=== PATIENT | male | born 1950 | race Caucasian/White ===

== ENCOUNTER 2023-05-11 09:48 | Outpatient (OUT) | payer MEDICARE, SELFPAY ==
[2023-05-11 10:56] LABS: Basophils Percent Auto 0.8 % (0.2-2.0); Eosinophils Absolute Auto 0.5 10^3/uL (0.0-0.7); Eosinophils Percent Auto 10.3 % (0.9-7.0); Hematocrit 42.9 % (42.0-54.0); Hemoglobin 13.8 g/dL (14.0-18.0); Immature Granulocytes Abs Auto 0.02 10^3/uL (0.00-0.03); Immature Granulocytes Pct Auto 0.4 % (0.0-0.5); Lymphocytes Percent Auto 40.9 % (20.5-60.0); Mean Corpuscular HGB Conc 32.2 g/dL (29.9-35.2); Mean Corpuscular Hemoglobin 30.4 pg (25.9-34.0); Mean Corpuscular Volume 94.5 fL (80.0-94.0); Mean Platelet Volume 10.2 fL (9.5-13.5); Monocytes Absolute Auto 0.4 10^3/uL (0.3-0.8); Monocytes Percent Auto 7.9 % (1.7-12.0); Neutrophils Absolute Auto 1.9 10^3/uL (1.4-6.5); Neutrophils Percent Auto 39.7 % (43.0-75.0); Platelet Count 269 10^3/uL (150-450); Red Blood Count 4.54 10^6/uL (4.70-6.10); Red Cell Distribution Width 14.4 % (11.0-15.0); White Blood Count 4.8 10^3/uL (4.0-11.0)
[2023-05-11 11:18] LABS: Alanine Aminotransferase 38 U/L (16-63); Anion Gap 12.4; Calcium 8.6 mg/dL (8.5-10.1); Carbon Dioxide 27.8 mmol/L (21.0-32.0); Chloride 104 mmol/L (98-107); Chol HDL Ratio 3.5; Cholesterol 145 mg/dL (<=200); Estimated GFR (African America >60 (>=60); Estimated GFR (Non-African Ame >60 (>=60); Glucose 112 mg/dL (74-106); HDL Cholesterol 42 mg/dL (40-60); Potassium 4.2 mmol/L (3.5-5.1); Sodium 140 mmol/L (136-145); Triglycerides 224 mg/dL (<=150); VLDL CHOLESTEROL 44.8 mg/dL
[2023-05-11 13:26] LABS: Prostate Specific Antigen Scrn 0.47 ng/mL (<=4.00)
== END 2023-05-11 09:49 | disposition home or self-care (01) ==
PROVIDERS: PCP Internal Medicine; Visit Provider Internal Medicine
DX: E78.01 Familial hypercholesterolemia (principal); Z79.899 Other long term (current) drug therapy; I10 Essential (primary) hypertension; Z12.5 Encounter for screening for malignant neoplasm of prostate
CPT/HCPCS: 36415; 80048; 80061; 84460; 85025; G0103

== ENCOUNTER 2024-05-10 07:11 | Outpatient (OUT) | payer MEDICARE, SELFPAY ==
--- OUTSIDE RECORDS SUMMARY | 2024-05-10 07:15 | XMS_ITS | CCD ---
Author Organization [facility] CliniSymd Care Team Providers Care Clinic Scheduler Name Role Phone DR REMIGIO TANNER Attending Unavailable CIRO, DR STROUD Consulting Unavailable CIRO, DR STROUD Primary Care Unavailable CIRO, DR STROUD Admitting Unavailable Remigio Tanner Unavailable Elizabeth Ambrosio Unavailable Medications Current Medications Medication Drug Class(es) Dates Sig (Normalized) Sig (Original) amLODIPine 2.5 mg oral tablet (10 sources) Dihydropyridine Calcium Channel Yusuf Start: 06-01-2023 take 1 tablet by mouth once daily Amlodipine 2.5 mg tablet Active 2.5 MG PO Daily June 01, 2023 12:00am take 1 tablet by jyoti th every twenty-four hours amLODIPine Besylate 2.5 MG 1 tablet Orally Once a day Active aspirin 81 mg delayed release oral tablet (10 sources) Platelet Aggregation Inhibitor, Nonsteroidal Anti-inflammatory Drug Start: 08-14-2023 take 1 tablet by mouth once daily Aspirin 81 mg tablet,delayed release (DR/EC) Active 81 MG PO Daily August 13, 2023 11:00pm take 1 tablet by jyoti th every twenty-four hours Aspirin 81 MG 1 tablet Orally Once a day Active lisinopril 20 mg oral tablet (13 sources) Angiotensin Converting Enzyme Inhibitor Start: 08-14-2023 take 1 tablet by mouth once daily Lisinopril 20 mg tablet Active 0 .ROUTE .COMPLEX August 14, 2023 3:46pm TAKE 1 TABLET BY MOUTH EVERY DAY Start: 08-14-2023 End: 08-14-2023 take 1 tablet by mouth once daily Lisinopril 20 mg tablet Discontinued 20 MG PO Daily August 13, 2023 11:00pm August 14, 2023 3:46pm take 1 tablet by jyoti th once daily Lisinopril 20 MG TAKE 1 TABLET BY MOUTH EVERY DAY Active simvastatin 40 mg oral tablet (12 sources) HMG-CoA Reductase Inhibitor Start: 11-28-2023 take 1 tablet by mouth once daily in the evening Simvastatin 40 mg tablet Active 0 .ROUTE .COMPLEX 90 November 28, 2023 11:10am TAKE 1 TABLET BY MOUTH EVERY EVENING Start: 08-14-2023 End: 11-28-2023 take 1 tablet by mouth once daily in the evening Simvastatin 40 mg tablet Discontinued 40 MG PO Every evening August 13, 2023 11:00pm November 28, 2023 11:10am Simvastatin 40 M G TAKE 1 (ONE) TABLET DAILY IN EVENING Active Problems Active Problems Problem Classification Problem Date Documented Da te Episodic/Chronic Deficiency and other anemia (3 sources) Anemia; Translations: [Anemia, unspecified] 07-24-2023 Episodic Diseases of white blood cells (7 sources) Neutropenia; Translations: [Neutropenia, unspecified] Chronic Disorders of lipid metabolism (19 sources) Familial hypercholesterolemi a; Translations: [Pure hypercholesterolemi a] Onset: 05-14-2022 Chronic Essential hypertension (20 sources) Essential (primary) hypertension; Translations: [Essential hypertension] Onset: 05-13-2022 Chronic Genitourinary symptoms and ill-defined conditions (1 source) Nocturia Episodic Hyperplasia of prostate (13 sources) Nocturia due to benign prostatic hypertrophy; Translations: [Benign prostatic hyperplasia with lower urinary tract symptoms] Chronic Mycoses (1 source) Candidal balanitis; Translations: [Candidal balanitis] Episodic Other aftercare (3 sources) Other manager terminal (current) drug therapy; Translations: [OTH [facility] CURRENT DRUG THERAPY] Onset: 05-14-2022 Episodic Other aftercare (1 source) H/O: high risk medication; Translations: [Other manager terminal (current) drug therapy] Episodic Other nutritional; endocrine; and metabolic disorders (1 source) Obese class I; Translations: [Obesity, unspecified] Chronic Other nutritional; endocrine; and metabolic disorders (6 sources) Obesity caused by energy imbalance; Translations: [Other obesity due to excess calories] Chronic Other nutritional; endocrine; and metabolic disorders (6 sources) Body mass index 30+ - obesity; Translations: [Body mass index (BMI) 31.0-31.9, adult] Chronic Other nutritional; endocrine; and metabolic disorders (5 sources) Obesity, unspecified; Translations: [Obesity, unspecified] Chronic Other nutritional; endocrine; and metabolic disorders (1 source) Other obesity due to excess calories Chronic Other nutritional; endocrine; and metabolic disorders (1 source) Body mass index (BMI) 31.0-31.9, adult Chronic Other nutritional; endocrine; and metabolic disorders (5 sources) Obesity; Translations: [Obesity, unspecified] 11-11-2023 Chronic Other screening for suspected conditions (not mental disorders or infectious disease) (7 sources) Encounter for screening for malignant neoplasm of prostate; Translations: [Prostate specific antigen measurement] Onset: 05-14-2022 Episodic Comment on above: PSA: 0.47 - 04/2023 Past or Other Problems Problem Classification Problem Date Documented Da te Episodic/Chronic Unclassified (1 source) Other eosinophilia; Translations: [Other eosinophilia] Results Test Name Value Interpretation Reference Range Facility [facility] [employer] [facility] [employer] ITT EXIM Other CBC AUTO DIFFon 05-13-2022 BASO # 0.1 103/ul Normal 0.0-0.[address] [facility] Comment on above: Performed By: #### C BC #### [facility] [address] [address] [address] Hernan Correa Basophils/100 WBC (Bld) 1.1 % Normal 0.2-2.[address] [facility] Comment on above: Performed By: #### C BC #### [facility] [address] [address] [address] Hernan Correa EO # 0.5 103/ul Normal 0.0-0.7 [facility] Comment on above: Performed By: #### C BC #### [facility] [address] [address] [address] Hernan Correa Eosinophils/100 WBC (Bld) 11.4 % Critically high 0.9-7.0 [facility] Comment on above: Performed By: #### C BC #### [facility] [address] [address] [address] Hernan Correa Erythrocyte distribution width (RBC) [Ratio] 14.0 % Normal 11.0-15.[address] [facility] Comment on above: Performed By: #### C BC #### [facility] [address] [place] [address] Dr. Hernan Correa Hematocrit (Bld) [Volume fraction] 43.5 % Normal 42.0-54.[address] [facility] Comment on above: Performed By: #### C BC #### [facility] [address] [place] [address] Dr. Hernan Correa Hemoglobin (Bld) [Mass/Vol] 14.3 g/dL Normal 14.0-18.[address] [facility] Comment on above: Performed By: #### C BC #### [facility] [address] [place] [address] Dr. Hernan Correa IG # 0.01 10e3/ul Normal 0.00-0.[address] [facility] Comment on above: Performed By: #### C BC #### [facility] [address] [place] [address] Dr. Hernan Correa IG % 0.2 % Normal 0.0-0.[address] [facility] Comment on above: Performed By: #### C BC #### [facility] [address] [place] [address] Dr. Hernan Correa LYMPH # 2.2 103/ul Normal 1.2-3.[address] [facility] Comment on above: Performed By: #### C BC #### [facility] [address] [place] [address] Dr. Hernan Correa Lymphocytes/100 WBC (Bld) 48.0 % Normal 20.5-60.[address] [facility] Comment on above: Performed By: #### C BC #### [facility] [address] [place] [address] Dr. Hernan Correa MANUAL DIFF REQ NO Normal [facility] Comment on above: Performed By: #### C BC #### [facility] [address] [place] [address] Dr. Hernan Correa MCH (RBC) [Entitic mass] 29.6 pg Normal 25.9-34.[address] [facility] Comment on above: Performed By: #### C BC #### [facility] [address] [place] [address] Dr. Hernan Correa MCHC (RBC) [Mass/Vol] 32.9 g/dL Normal 29.9-35.2 [facility] Comment on above: Performed By: #### C BC #### [facility] [address] [place] [address] Dr. Hernan Correa MCV (RBC) [Entitic vol] 90.1 fL Normal 80.0-94.0 [facility] Comment on above: Performed By: #### C BC #### [facility] [address] [place] [address] Dr. Hernan Correa MONO # 0.3 103/ul Normal 0.3-0.8 [facility] Comment on above: Performed By: #### C BC #### [facility] [address] [place] [address] Dr. Hernan Correa Monocytes/100 WBC (Bld) 7.6 % Normal 1.7-12.0 [facility] Comment on above: Performed By: #### C BC #### [facility] [address] [place] [address] Dr. Hernan Correa NEUT # 1.4 103/ul Normal 1.4-6.5 [facility] Comment on above: Performed By: #### C BC #### [facility] [address] [place] [address] Dr. Hernan Correa Neutrophils/100 WBC (Bld) 31.7 % Critically low 43.0-75.0 [facility] Comment on above: Performed By: #### C BC #### [facility] [address] [place] [address] Dr. Hernan Correa Platelet mean volume (Bld) [Entitic vol] 9.7 fL Normal 9.5-13.5 [facility] Comment on above: Performed By: #### C BC #### [facility] [address] [place] [address] Dr. Hernan Correa PLT 276 103/ul Normal 150-450 [facility] Comment on above: Performed By: #### C BC #### [facility] [address] [place] [address] Dr. Hernan Correa RBC 4.83 106/ul Normal 4.70-6.[address] [facility] Comment on above: Performed By: #### C BC #### [facility] [address] [place] [address] Dr. Hernan Correa WBC 4.5 103/ul Normal 4.0-11.[address] [facility] Comment on above: Performed By: #### C BC #### [facility] [address] [place] [address] Dr. Hernan Correa LIPID PROFILEon 05-13-2022 CHOL-HDL RATIO NORM SEE BELOW Normal [facility] Comment on above: Result Comment: 3.3 - 4.4 LOW RISK 4.4 - 7.1 AVERAGE RISK 7.1 - 11.0 MODERATE RISK >11.0 HIGH RISK Performed By: #### B MP, LIPID #### [facility] [address] [place] [address] Dr. Hernan Correa Cholesterol [Mass/Vol] 130 mg/dL Normal <=200 [facility] Comment on above: Performed By: #### B MP, LIPID #### [facility] [address] [place] [address] Dr. Hernan Correa Cholesterol in HDL [Mass/Vol] 36 mg/dL Critically low 40-[address] [facility] Comment on above: Performed By: #### B MP, LIPID #### [facility] [address] [place] [address] Dr. Hernan Correa Cholesterol in LDL [Mass/Vol] 53.4 mg/dL Normal [facility] Comment on above: Performed By: #### B MP, LIPID #### [facility] [address] [place] [address] Dr. Hernan Correa Cholesterol.total/ Cholesterol in HDL [Mass ratio] 3.6 {ratio} Normal [facility] Comment on above: Performed By: #### B MP, LIPID #### [facility] [address] [place] [address] Dr. Hernan Correa HDL NORMAL > or = 60 mg/dl - LOW CARDIOVASCULAR RISK <40 mg/dl - HIGH CARDIOVASCULAR RISK Normal [facility] Comment on above: Performed By: #### B MP, LIPID #### [facility] [address] [place] [address] Dr. Hernan Correa LDL CALC NORMAL SEE BELOW Normal [facility] Comment on above: Result Comment: <100 mg/dl OPTIMAL 100 - 129 mg/dl NEAR OR ABOVE OPTIMAL 130 - 159 mg/dl BORDERLINE HIGH 160 - 189 mg/dl HIGH >190 mg/dl VERY HIGH Performed By: #### B MP, LIPID #### [facility] [address] [place] [address] Dr. Hernan Correa Triglyceride [Mass/Vol] 203 mg/dL Critically high <=[address] [facility] Comment on above: Performed By: #### B MP, LIPID #### [facility] [address] [place] [address] Dr. Hernan Correa VLDL CALC 40.6 mg/dL Normal [facility] Comment on above: Performed By: #### B MP, LIPID #### [facility] [address] [place] [address] Dr. Hernan Correa PROF CHEM 8 (BAS METB)on Anion gap [Moles/Vol] 13.3 mmol/L Normal [facility] Comment on above: Performed By: #### B MP, LIPID #### [facility] [address] [place] [address] Dr. Hernan Correa Calcium [Mass/Vol] 9.0 mg/dL Normal 8.5-10.1 [facility] Comment on above: Performed By: #### B MP, LIPID #### [facility] [address] [place] [address] Dr. Hernan Correa Chloride [Moles/Vol] 104 mmol/L Normal 98-107 [facility] Comment on above: Performed By: #### B MP, LIPID #### [facility] [address] [place] [address] Dr. Hernan Correa CO2 [Moles/Vol] 29.1 mmol/L Normal 21.0-32.0 [facility] Comment on above: Performed By: #### B MP, LIPID #### [facility] [address] [place] [address] Dr. Hernan Correa Creatinine [Mass/Vol] 0.89 mg/dL Normal 0.70-1.[address] [facility] Comment on above: Performed By: #### B MP, LIPID #### [facility] [address] [place] [address] Dr. Hernan Correa EGFR-AF [facility] >60 Normal >=60 [facility] Comment on above: Performed By: #### B MP, LIPID #### [facility] [address] [place] [address] Dr. Hernan Correa EGFR-NON AF [facility] >60 Normal >=[address] [facility] Comment on above: Performed By: #### B MP, LIPID #### [facility] [address] [place] [address] Dr. Hernan Correa Glucose [Mass/Vol] 120 mg/dL Critically high 74-106 [facility] Comment on above: Performed By: #### B MP, LIPID #### [facility] [address] [place] [address] Dr. Hernan Correa Potassium [Moles/Vol] 4.4 mmol/L Normal 3.5-5.[address] [facility] Comment on above: Performed By: #### B MP, LIPID #### [facility] [address] [place] [address] Dr. Hernan Correa Sodium [Moles/Vol] 142 mmol/L Normal 136-145 [facility] Comment on above: Performed By: #### B MP, LIPID #### [facility] [address] [place] [address] Dr. Hernan Correa Urea nitrogen [Mass/Vol] 12.0 mg/dL Normal 7.0-18.[address] [facility] Comment on above: Performed By: #### B MP, LIPID #### [facility] [address] [place] [address] Dr. Hernan Correa Urea nitrogen/Creatinin e [Mass ratio] 13.5 mg/mg Normal [facility] Comment on above: Performed By: #### B MP, LIPID #### [facility] [address] [place] [address] Dr. Hernan Correa Vital Signs Date Time Vital Sign Value Performing Clinician Facility 05-09-2024 11:22-0500 Body height 175.26 cm [facility] 05-09-2024 11:22-0500 Body mass index (BMI) [Ratio] 31 kg/m2 [facility] 05-09-2024 11:22-0500 Body weight 95.42 kg [facility] 05-09-2024 11:22-0500 Diastolic blood pressure 89 mm[Hg] [facility] 05-09-2024 11:22-0500 Heart rate 78 /min [facility] 05-09-2024 11:22-0500 Respiratory rate 12 /min [facility] 05-09-2024 11:22-0500 Systolic blood pressure 139 mm[Hg] [facility] 11-11-2023 10:27-0400 Body height 175.26 cm [facility] 11-11-2023 10:27-0400 Body mass index (BMI) [Ratio] 31.3 kg/m2 [facility] 11-11-2023 10:27-0400 Body weight 96.16 kg [facility] 11-11-2023 10:27-0400 Diastolic blood pressure 89 mm[Hg] [facility] 11-11-2023 10:27-0400 Heart rate 79 /min [facility] 11-11-2023 10:27-0400 Respiratory rate 12 /min [facility] 11-11-2023 10:27-0400 Systolic blood pressure 139 mm[Hg] [facility] 05-11-2023 09:00-0500 Body height 175.26 cm Remigio Ball Other [employer] [facility] [employer] Other 05-11-2023 09:00-0500 Body mass index (BMI) [Ratio] 32.6 kg/m2 Remigio Ball Other [employer] [facility] [employer] Other 05-11-2023 09:00-0500 Body weight 100.15 kg Remigio Ball Other [employer] [facility] [employer] Other 05-11-2023 09:00-0500 Diastolic blood pressure 97 mm[Hg] Remigio Ball Other [employer] Other 05-11-2023 09:00-0500 Respiratory rate 12 /min Remigio Ball Other [employer] Other 05-11-2023 09:00-0500 Systolic blood pressure 162 mm[Hg] Remigio Ball Other [employer] Other 11-06-2022 09:00-0400 Body height 175.26 cm Remigio Ball Other [employer] Other 11-06-2022 09:00-0400 Body mass index (BMI) [Ratio] 31.33 kg/m2 Remigio Ball Other [employer] Other 11-06-2022 09:00-0400 Body weight 96.25 kg Remigio Ball Other [employer] Other 11-06-2022 09:00-0400 Diastolic blood pressure 88 mm[Hg] Remigio Ball Other [employer] Other 11-06-2022 09:00-0400 Respiratory rate 12 /min Remigio Ball Other [employer] Other 11-06-2022 09:00-0400 Systolic blood pressure 139 mm[Hg] Remigio Ball Other [employer] Other 05-09-2022 09:30-0500 Body height 175.26 cm Remigio Ball Other [employer] Other 05-09-2022 09:30-0500 Body mass index (BMI) [Ratio] 33.31 kg/m2 Remigio Ball Other [employer] Other 05-09-2022 09:30-0500 Body temperature 96.7 [degF] Remigio Tanner Other [employer] Other 05-09-2022 09:30-0500 Body weight 102.33 kg Remigio Tanner Other [employer] Other 05-09-2022 09:30-0500 Diastolic blood pressure 86 mm[Hg] Remigio Tanner Other [employer] Other 05-09-2022 09:30-0500 SaO2% (BldA) [Mass fraction] 95 % Remigio Tanner Other [employer] Other 05-09-2022 09:30-0500 Systolic blood pressure 138 mm[Hg] Remigio Vayyar Other [employer] Other Encounters Encounter Date Encounter Type Care Provider Facility Start: 05-09-2024 End: 05-09-2024 ambulatory [facility] Work Phone: Start: 05-09-2024 End: 05-09-2024 Patient encounter procedure [facility] Work Phone: Start: 04-21-2024 Patient encounter procedure [facility] Start: 01-29-2024 End: 01-29-2024 ambulatory [facility] Work Phone: Start: 01-29-2024 End: 01-29-2024 Patient encounter procedure [facility] Work Phone: Start: 11-11-2023 End: 11-11-2023 ambulatory [facility] Work Phone: Start: 11-11-2023 End: 11-11-2023 Patient encounter procedure [facility] Work Phone: Start: 08-14-2023 Non-patient / Non-visit [facility] Work Phone: Start: 05-12-2023 End: 05-12-2023 ambulatory Remigio Tanner Other [employer] Other Start: 05-12-2023 Telephone encounter Remigio Tanner [facility] Start: 05-11-2023 End: 05-11-2023 ambulatory Remigio Tanner Other [employer] Other Start: 05-11-2023 Patient encounter procedure Remigio Ciro [facility] Start: 12-22-2022 End: 12-22-2022 ambulatory Elizabeth Ambrosio Other [employer] Other Start: 12-22-2022 Nursing evaluation o f patient and report Elizabeth Ambrosio [facility] Start: 11-06-2022 End: 11-06-2022 ambulatory Remigio Tanner Other [employer] Other Start: 11-06-2022 Office outpatient vi sit 25 minutes Remigio Tanner [facility] Start: 11-06-2022 Telephone encounter Remigio Tanner [facility] Start: 05-30-2022 End: 05-30-2022 ambulatory Remigio Tanner Other [employer] Other Start: 05-30-2022 Telephone encounter Remigio MOLINA [facility] Start: 05-13-2022 End: 05-14-[address] REMIGIO TANNER Facility:[facility] Start: 05-09-2022 End: 05-09-2022 ambulatory Remigio Tanner Other [employer] Other Start: 05-09-2022 Patient encounter procedure Remigio Tanner [facility] Procedures Date Procedure Procedure Detail Performing Clinician Start: 05-13-[address] BUENO [facility] Comment on above: Performed By: #### [facility] #### [facility] [address] [place] [address] Dr. Hernan Correa Plan of Treatment Date Care Activity Detail Author Comprehensive metabo lic 2000 panel - Serum or Plasma [facility] enter [facility] Immunizations Immunization Date Immunization Notes Care Provider Fa cility 01-29-2024 influenza, high dose seasonal, preservative-free [facility] 12-22-2022 influenza virus vaccine, unspecified formulation [facility] 12-22-2022 influenza, high dose seasonal, preservative-free Elizabeth Daily Other [facility] [employer] Other 01-22-2022 influenza virus vaccine, split virus (incl. purified surface antigen) Remigio Tanner Other [facility] Other 01-22-2022 influenza virus vaccine, unspecified formulation [facility] 12-13-2019 influenza virus vaccine, split virus (incl. purified surface antigen) Remigio Tanner Other [facility] Other 12-13-2019 influenza virus vaccine, unspecified formulation [facility] 08-06-2017 pneumococcal conjuga te vaccine, 13 valent Remigio Tanner Other [facility] 01-09-2017 influenza virus vaccine, split virus (incl. purified surface antigen) Remigio Tanner Other [facility] Other 01-09-2017 influenza virus vaccine, unspecified formulation [facility] Payers Date Payer Category Payer Unknown [id number] 1950 Unknown [id number] Private Health Insurance [employer] HMO [id number] Unknown Camila BC/BS [id number] Social History Date Type Detail Facility Sex Assigned At [facility] [employer] Other Start: 11-11-2023 End: 11-11-2023 Tobacco smoking status NHIS Never smoked tobacco (finding) [facility] Start: 1950 Sex Assigned At Male F [facility] Start: 05-09-2024 Sex Male (finding) [facility] Evaluation note 05-11-2023 Note Date & Type Note Facility 05-11-2023 Evaluation note Encounter Date Diagnosis Assessment Notes Apr, Medicare annual wellness visit, subsequent (ICD-10 - Z00.00) Personalized health advice was given to the beneficiary including a written plan for screenings discussed and provided. Advanced care planning reviewed and/or information given as requested. Additional counseling was provided here today in regards to, [ ]. The above visit was performed by [ ], under direct supervision of [ ]. Document reviewed and amended by provider signed below. Apr, Essential hypertension (ICD-10 - I10) This patient is instructed to consume a healthy, low-fat, low-salt diet. They are also encouraged to continue exercise to achieve/maintain a normal BMI. Patient is instructed on home BP measurements: - rest for 5 minutes w/o talking.- positioned w/ feet on floor and arm supported.- average best 2/3 readings w/ goal < 135/85.- update office w/ home readings in 2 weeks. Apr, Hyperlipidemia type II (ICD-10 - E78.01) Instructed on diet and exercise with continued statin therapy.Discussed the beneficial effects of lowering cholesterol in reducing the risk for cerebrovascular and cardiovascular disease. Apr, Obesity (BMI 30.0-34.9) (ICD-10 - E66.9) This patient has been instructed on a low-fat, high-fiber diet. They are instructed to reduce calories, portion sizes and snacks. It is recommended that they exercise for 30 minutes, 3-5 times weekly. Apr, High risk medication use (ICD-10 - Z79.899) Monitor labs: ALT, CBC Apr, Screening PSA (prostate specific antigen) (ICD-10 - Z12.5) Yearly YOANDY and PSA His symptoms are tolerable. Denies dysuria or hematuria [facility] Other Evaluation note 11-06-2022 Note Date & Type Note Facility 11-06-2022 Evaluation note Encounter Date Diagnosis Assessment Notes Oct, Primary hypertension (ICD-10 - I10) This patient is instructed to consume a healthy, low-fat, low-salt diet. They are also encouraged to continue exercise to achieve/maintain a normal BMI. Oct, Elevated cholesterol (ICD-10 - E78.00) Instructed on diet and exercise with continued statin therapy.Discussed the beneficial effects of lowering cholesterol in reducing the risk for cerebrovascular and cardiovascular disease. Oct, Other obesity due to excess calories (ICD-10 - E66.09) This patient has been instructed on a low-fat, high-fiber diet. They are instructed to reduce calories, portion sizes and snacks. It is recommended that they exercise for 30 minutes, 3-5 times weekly. Oct, Body mass index [BMI] 31.0-31.9, adult (ICD-10 - Z68.31) Oct, Nocturia (ICD-10 - R35.1) Oct, Benign prostatic hyperplasia with lower urinary tract symptoms (ICD-10 - N40.1) Yearly YOANDY and PSA. Symptoms tolerable at this time Denies dysuria or hematuria [facility] Other Evaluation note 05-09-2022 Note Date & Type Note Facility 05-09-2022 Evaluation note Encounter Date Diagnosis Assessment Notes Apr, Medicare annual wellness visit, subsequent (ICD-10 - Z00.00) Personalized health advice was given to the beneficiary including a written plan for screenings discussed and provided. Advanced care planning reviewed and/or information given as requested. Additional counseling was provided here today in regards to, [ ]. The above visit was performed by [ ], under direct supervision of [ ]. Document reviewed and amended by provider signed below. Healthy diet and exercise. Reviewed age-appropriate preventive testing recommended. Apr, Essential hypertension (ICD-10 - I10) This patient is instructed to consume a healthy, low-fat, low-salt diet. They are also encouraged to continue exercise to achieve/maintai n a normal BMI. Apr, Hyperlipidemia type II (ICD-10 - E78.01) Diet and exercise with continued statin therapy. Apr, Obesity (BMI 30.0-34.9) (ICD-10 - E66.9) This patient has been instructed on a low-fat, high-fiber diet. They are instructed to reduce calories, portion sizes and snacks. It is recommended that they exercise for 30 minutes, 3-5 times weekly. Apr, High risk medication use (ICD-10 - Z79.899) Apr, Screening PSA (prostate specific antigen) (ICD-10 - Z12.5) Yearly YOANDY and PSA Apr, Colon cancer screening (ICD-10 - Z12.11) [facility] Other Evaluation note Note Date & Type Note Facility Evaluation note No Information [employer] Other Evaluation note Note Date & Type Note Facility Evaluation note Diagnosis Onset Date Benign prostatic hyperplasia with lower urinary tract symptoms acute Hypercholesterolemia acute Hypertension acute Obesity acute [facility] Work Phone: Evaluation note Note Date & Type Note Facility Evaluation note Diagnosis Onset Date Resolution Benign prostatic hyperplasia with lower urinary tract symptoms acute April 142024 10:58am Hypercholesterolemia acute 2024 10:58am Hypertension acute April 10:58am Medicare annual wellness visit, subsequent acute May 09, 2024 10:58am Obesity acute May 09, 2024 10:58am Screening PSA (prostate specific antigen) acute May 09, 2024 10:58am [facility] Work Phone: History general Narrative - Reported Note Date & Type Note Facility History general Narrative - Reported Type Medical History Essential hypertension Medical History Obesity Medical History Screening PSA (prost ate specific antigen) Medical History Hyperlipidemia type II Medical History Neutropenia, unspecified type Medical History Other eosinophilia Medical History Candidal balanitis Medical History High risk medication use Surgical History bilateral cataract removal 03/14 022 Hospitalization History SEE SURGICAL HX [facility] Other Summary Purpose Family History Relationship Condition Age at Onset Recorded Date/T debra father Heart disease Unknown Unknown mother Unknown Advance Directives Advance Directive Response Recorded Date/ Time Advance Directives No May 11, 2023 2:56pm Advance Directive Response Recorded Date/ Time Advance Directives No May 11, 2023 1:56pm Chief Complaint and Reason for Visit Chief Complaint Amb Documentation 6 month follow up Reason for Visit Benign prostatic hyp erplasia with lower urinary tract symptoms Hypercholesterolemia Hypertension Obesity Chief Complaint 6 month follow up Flu shot Reason for Visit Benign prostatic hyp erplasia with lower urinary tract symptoms Hypercholesterolemia Hypertension Obesity Chief Complaint Admit Date wellness May 09, 2024 1 0:58am Reason for Visit Admit Date Benign prostatic hyperplasia with lower urinary tract symptoms May 09, 2024 10:58am Hypercholesterolemia May 09, 2024 10:58am Hypertension May 09, 2024 1 0:58am Medicare annual wellness visit, subseque nt May 09, 2024 10:58am Obesity May 09, 2024 1 0:58am Screening PSA (prostate specific antigen ) May 09, 2024 10:58am Additional Source Comments (unrecognized sect ion and content) No Status Records Found INFORMATION SOURCE (unrecogn ized section and content) DATE CREATED AUTHOR 05/14/2022 [facility] REASON FOR VISIT (unrecogniz ed section and content) Lab resultsFLU Shot6 month F carlita [facility] Care Teams (unrecognized sec tion and content) Team Status: Active Member Role Status Dates Remigio Tanner DO Primary Care Provider Active Team Status: Inactive Member Role Status Dates Remigio Tanner DO Primary Care Provide r, Attending Provider Active Start: November 11, 2023 End: November 11, 2023 Team Status: Inactive Member Role Status Dates Remigio Tanner DO Primary Care Provide r, Attending Provider Active Start: January 29, 2024 End: January 29, 2024 Team Status: Active Member Role Status Dates Remigio Tanner DO Primary Care Provider Active Start: August 14, 2023 ROLY Jarvis Attending Provider Active Start : August 14, 2023 Team Status: Inactive Member Role Status Dates Remigio Tanner DO Primary Care Provide r, Attending Provider Active Start: May 09, 2024 End: May 09, 2024 Goals (unrecognized section and content) Goals may be documented in a n alternate section FOR RECORDS PERTAINING TO PATIENTS WHO ARE OR HAVE BEEN ENROLLED IN A CHEMICAL DEPENDENCY/SUBSTANCEABUSE PROGRAM, SOME INFORMATION MAY BE OMITTED. This clinical summary was aggregated from multiple sources. Caution should be exercised in using it in the provision of clinical care. This summary normalizes information from multiple sources, and as a consequence, information in this document may materially change the coding, format and clinical context of patient data. In addition, data may be omitted in some cases. CLINICAL DECISIONS SHOULD BE BASED ON THE PRIMARY CLINICAL RECORDS. [facility] Care Team [facility]. provides no warranty or guarantee of the accuracy or completeness of information in this document.
[2024-05-10 07:39] LABS: Basophils Percent Auto 0.6 % (0.2-2.0); Eosinophils Absolute Auto 0.6 10^3/uL (0.0-0.7); Eosinophils Percent Auto 11.5 % (0.9-7.0); Hematocrit 40.9 % (42.0-54.0); Hemoglobin 13.2 g/dL (14.0-18.0); Immature Granulocytes Abs Auto 0.04 10^3/uL (0.00-0.03); Immature Granulocytes Pct Auto 0.8 % (0.0-0.5); Lymphocytes Absolute Auto 1.8 10^3/uL (1.2-3.8); Lymphocytes Percent Auto 37.1 % (20.5-60.0); Mean Corpuscular HGB Conc 32.3 g/dL (29.9-35.2); Mean Corpuscular Hemoglobin 30.9 pg (25.9-34.0); Mean Corpuscular Volume 95.8 fL (80.0-94.0); Mean Platelet Volume 9.7 fL (9.5-13.5); Monocytes Absolute Auto 0.4 10^3/uL (0.3-0.8); Platelet Count 290 10^3/uL (150-450); Red Blood Count 4.27 10^6/uL (4.70-6.10); Red Cell Distribution Width 14.4 % (11.0-15.0); White Blood Count 4.8 10^3/uL (4.0-11.0)
[2024-05-10 09:59] LABS: Alanine Aminotransferase 24 U/L (16-63); Albumin Globulin Ratio 0.9; Albumin Level 3.7 g/dL (3.4-5.0); Alkaline Phosphatase 71 U/L (46-116); Anion Gap 9.8; Aspartate Amino Transferase 17 U/L (15-37); BUN Creatinine Ratio 14.4; Bilirubin Total 0.3 mg/dL (0.2-1.0); Calcium 8.7 mg/dL (8.5-10.1); Carbon Dioxide 29.3 mmol/L (21.0-32.0); Chloride 104 mmol/L (98-107); Chol HDL Ratio 3.2; Cholesterol 131 mg/dL (<=200); Estimated GFR (African America >60 (>=60 mL/min/1.73m^2); Estimated GFR (Non-African Ame >60 (>=60 mL/min/1.73m^2); Globulin 3.9 g/dL; Glucose 117 mg/dL (74-106); HDL Cholesterol 41 mg/dL (40-60); Potassium 4.1 mmol/L (3.5-5.1); Sodium 139 mmol/L (136-145); Total Protein 7.6 g/dL (6.4-8.2); Triglycerides 140 mg/dL (<=150)
== END 2024-05-10 07:12 | disposition home or self-care (01) ==
PROVIDERS: PCP Internal Medicine; Visit Provider Internal Medicine
DX: E78.00 Pure hypercholesterolemia, unspecified (principal); I10 Essential (primary) hypertension; D64.9 Anemia, unspecified; Z12.5 Encounter for screening for malignant neoplasm of prostate
CPT/HCPCS: 36415; 80053; 80061; 85025; G0103